=== PATIENT | female | born 1975 | race African-American/Black ===

== ENCOUNTER → 2017-01-26 | Outpatient (CLI) | payer OTHER ==
--- NOTE | 2017-01-26 11:19 | REPMRS ---
Patient History The patient states she has not had a clinical breast exam in over a year. Family history of ovarian cancer in paternal aunt at age 36 and breast cancer in paternal grandmother under age 50. Digital Woman Screen Mammo: January 26, 2017 - Exam #: [id number] Bilateral CC and MLO view(s) were taken. Technologist: Verona Romeo, Technologist Prior study comparison: November 27, 2015, digital woman screen mammo performed at [facility]. June 30, 2014, digital woman screen mammo performed at [facility]. 2011, bilateral bilat screen digital mammo, [facility]. FINDINGS: There are scattered fibroglandular densities. There is a moderate amount of residual fibroglandular tissue which is fairly symmetric. There is no interval development of dominant mass, architectural distortion, or clustered microcalcification typical of malignancy. There has been no change in the appearance of the mammogram from the prior studies. ASSESSMENT: BI-RADS/ACR category 1 mammogram. Negative. Recommendation Routine screening mammogram of both breasts in 1 year (for women over age 40). This mammogram was interpreted with the aid of an FDA-approved computer-aided dectection system. Electronically Signed By: Doug Servin MD 01/26/17 9334
== END ==
LOC: M WHC 10:36
PROVIDERS: ATTEND Family Medicine
DX: Z12.31 Encounter for screening mammogram for malignant neoplasm of breast (principal)